=== PATIENT | male | born 1955 | race Caucasian/White ===

== ENCOUNTER → 2017-01-13 | Outpatient (CLI) | payer MEDICARE ==
[2017-01-13 09:41] LABS: Basophils % (A) 1 %; CH 31.1; CHCM 33.8; Eosinophils # (A) 0.3 k/uL (0-0.7); Eosinophils % (A) 6 %; HCT 40.8 % (39.0-53.0); HDW 2.48; HGB 13.8 gm/dL (13.0-17.5); Luc % (Auto) 4; Lymphocytes # (A) 1.6 k/uL (1.0-4.8); Lymphocytes % (A) 30 %; MCH 31.2 pg (25.0-35.0); MCHC 33.8 g/dL (31.0-37.0); MCV 92.3 fL (80.0-100.0); Monocytes # (A) 0.4 k/uL (0-1.0); Monocytes % (A) 7 %; Neutrophils # (A) 2.8 k/uL (1.3-7.7); Neutrophils % (A) 52 %; RBC 4.42 m/uL (4.30-5.90); RDW 13.5 % (11.5-15.5); WBC 5.4 k/uL (3.8-10.6); WBC (Perox) 5.45
[2017-01-13 10:19] LABS: ALT 29 U/L (21-72); AST 15 U/L (17-59); Alkaline Phosphatase 82 U/L (38-126); Anion Gap 8 mmol/L; Blood Urea Nitrogen 13 mg/dL (9-20); Calcium 9.1 mg/dL (8.4-10.2); Carbon Dioxide 29 mmol/L (22-30); Chloride 106 mmol/L (98-107); Cholesterol 163 mg/dL (<200); Glucose 86 mg/dL (74-99); HDL Cholesterol 44 mg/dL (40-60); Non-African American GFR(MDRD) >60 (>60 ml/min/1.73 sqM); Potassium 4.2 mmol/L (3.5-5.1); Sodium 143 mmol/L (137-145); Total Bilirubin 0.2 mg/dL (0.2-1.3); Total Protein 6.6 g/dL (6.3-8.2); Triglycerides 360 mg/dL (<150)
[2017-01-13 10:29] LABS: Hemoglobin A1C 5.7 % (4.2-6.1)
[2017-01-13 11:07] LABS: Vitamin B12 313 pg/mL (239-931)
[2017-01-16 11:34] LABS: Mercury Whole Blood < 2 mcg/L (< 11)
== END | disposition home or self-care (01) ==
LOC: LABWHC1 08:34
PROVIDERS: ATTEND Internal Medicine
DX: I65.29 Occlusion and stenosis of unspecified carotid artery (principal); G62.9 Polyneuropathy, unspecified; R73.02 Impaired glucose tolerance (oral); Z51.81 Encounter for therapeutic drug level monitoring
CPT/HCPCS: 36415; 80053; 80061; 80306; 82175; 82570; 82607; 82747; 83036; 83655; 83825; 85025

== ENCOUNTER → 2017-01-15 | Outpatient (CLI) | payer MEDICARE ==
--- NOTE | 2017-01-15 10:48 | US ---
EXAMINATION TYPE: US carotid duplex BILAT DATE OF EXAM: 01/15/2017 9:11 AM COMPARISON: In pacs CLINICAL HISTORY: 62-year-old male I65.29 Carotid Artery Stenosis,. TECHNIQUE: Carotid duplex ultrasound. Indirect Doppler criteria was utilized. FINDINGS: Zamora scale images show minimal atherosclerotic change at the bifurcations. EXAM MEASUREMENTS: RIGHT: Peak Systolic Velocity (PSV) cm/sec ----- Right CCA: 94.2 ----- Right ICA: 105.0 ----- Right ECA: 99.2 ICA/CCA ratio: 1.1 RIGHT: End Diastole cm/sec ----- Right CCA: 31.1 ----- Right ICA: 51.5 ----- Right ECA: 31.2 LEFT: Peak Systolic Velocity (PSV) cm/sec ----- Left CCA: 82.0 ----- Left ICA: 101.2 ----- Left ECA: 74.4 ICA/CCA ratio: 1.2 LEFT: End Diastole cm/sec ----- Left CCA: 31.2 ----- Left ICA: 47.0 ----- Left ECA: 17.2 VERTEBRALS (direction of flow): Right Vertebral: Antegrade Left Vertebral: Antegrade IMPRESSION: No hemodynamically significant stenosis appreciated in either internal carotid artery. Criteria for Assigning % of Stenosis / Diameter reduction (Estimation based on the indirect measurements of the internal carotid artery velocities (ICA PSV). 1. Normal (no stenosis)=ICA PSV < 125 cm/s: ratio < 2.0: ICA EDV<40 cm/s. 2. Less than 50% stenosis=ICA PSV < 125 cm/s: ratio < 2.0: ICA EDV<40 cm/s. 3. 50 to 69% stenosis=ICA PSV of 125 to 230 cm/s: ration 2.0 ? 4.0: ICA EDV 40-100 cm/s. 4. Greater than 70% stenosis to near occlusion= ICA PSV > 230 cm/s: ratio > 4.0: ICA EDV > 100 cm/s. 5. Near occlusion= ICA PSV velocities may be low or undetectable: variable ratio and ICA EDV. 6. Total occlusion=unable to detect flow.
== END | disposition home or self-care (01) ==
LOC: RADUSWWP 08:48
PROVIDERS: ATTEND Internal Medicine
DX: I65.29 Occlusion and stenosis of unspecified carotid artery (principal)
CPT/HCPCS: 93880

== ENCOUNTER → 2017-04-08 | Outpatient (CLI) | payer MEDICARE ==
--- NOTE | 2017-04-08 13:56 | XR ---
Bilateral hips HISTORY: Hip pain 2 views of both hips submitted Correlation of previous exam dated February, CT abdomen pelvis dated February 2017 Marginal spurring is present, joint spaces are relatively maintained. Alignment and bone mineralizati on normal. There is joint space loss on the left greater than right, large geode is present within th e acetabular roof on the left. Some erosion of the lateral aspect of the left acetabulum is again not ed. IMPRESSION: Osteoarthritis worse in the left hip within the right.
== END ==
LOC: RADXRMAIN 10:36
PROVIDERS: ATTEND Internal Medicine
DX: M16.0 Bilateral primary osteoarthritis of hip (principal)
CPT/HCPCS: 73521

== ENCOUNTER → 2017-10-07 | Outpatient (CLI) | payer MEDICARE ==
[~2017-10-07] MED LIST: HYDROcodone/APAP 5-325MG 1 EACH TAB PO STA
[2017-10-07 08:48] LABS: Cholesterol 171 mg/dL (<200); HDL Cholesterol 49 mg/dL (40-60); Non-African American GFR(MDRD) >60 (>60 ml/min/1.73 sqM)
[2017-10-07 08:49] VITALS: RESP 14; TEMP 98.3
[2017-10-07 11:17] VITALS: BP 124/80; PULSE 76
== END | disposition home or self-care (01) ==
LOC: RADMRIMAIN 07:58
PROVIDERS: ATTEND Psychiatry & Neurology Neurology
DX: I65.29 Occlusion and stenosis of unspecified carotid artery (principal); Z13.9 Encounter for screening, unspecified; Z12.5 Encounter for screening for malignant neoplasm of prostate
CPT/HCPCS: 80061; 82565

== ENCOUNTER → 2017-10-07 | Outpatient (CLI) | payer MEDICARE ==
[2017-10-07 08:56] LABS: Basophils # (A) 0.1 k/uL (0-0.2); Basophils % (A) 1 %; CH 29.7; CHCM 32.8; Eosinophils # (A) 0.5 k/uL (0-0.7); Eosinophils % (A) 7 %; HDW 2.33; HGB 14.2 gm/dL (13.0-17.5); Luc # (Auto) 0.15; Luc % (Auto) 2; Lymphocytes # (A) 1.5 k/uL (1.0-4.8); Lymphocytes % (A) 21 %; MCH 30.1 pg (25.0-35.0); MCHC 33.1 g/dL (31.0-37.0); Mean Platelet Volume 6.8; Monocytes # (A) 0.7 k/uL (0-1.0); Monocytes % (A) 10 %; Neutrophils # (A) 4.1 k/uL (1.3-7.7); Neutrophils % (A) 59 %; RBC 4.73 m/uL (4.30-5.90); RDW 15.8 % (11.5-15.5); WBC (Perox) 7.05
[2017-10-07 11:21] LABS: ALT 29 U/L (21-72); AST 17 U/L (17-59); Alkaline Phosphatase 84 U/L (38-126); Anion Gap 10 mmol/L; Blood Urea Nitrogen 18 mg/dL (9-20); Calcium 9.7 mg/dL (8.4-10.2); Carbon Dioxide 22 mmol/L (22-30); Chloride 110 mmol/L (98-107); Glucose 91 mg/dL (74-99); Non-African American GFR(MDRD) >60 (>60 ml/min/1.73 sqM); Potassium 4.3 mmol/L (3.5-5.1); Sodium 142 mmol/L (137-145); Total Bilirubin 0.4 mg/dL (0.2-1.3); Total Protein 7.5 g/dL (6.3-8.2)
[2017-10-07 11:50] LABS: Prostate Specific Antigen 0.32 ng/mL (0.00-4.00)
== END ==
LOC: LAB 08:07
PROVIDERS: ATTEND Internal Medicine
DX: I65.29 Occlusion and stenosis of unspecified carotid artery (principal); Z13.9 Encounter for screening, unspecified; Z12.5 Encounter for screening for malignant neoplasm of prostate
CPT/HCPCS: 80053; 84153; 85025; 86803

== ENCOUNTER → 2017-11-18 | Outpatient (CLI) | payer MEDICARE ==
--- NOTE | 2017-11-18 08:30 | MR ---
MRI CERVICAL SPINE: CLINICAL HISTORY: Severe new onset pain and cervical herniated disc per order. Neck pain down right a rm into fingers per patient. TECHNIQUE: Multiplanar, multisequence imaging of the cervical spine is performed without IV contrast. COMPARISON: MRI cervical spine August 17, 2016. FINDINGS: Exam is once again noted suboptimal due to significant patient motion similar to prior MRI, patient states too much pain to stay still per mri special procedures technologist. Sagittal images of the cervical spi ne show the craniocervical junction to remain within normal limits. The cervical and upper thoracic spinal cord is normal in course and caliber. Areas of abnormal signal cannot be excluded for referen ce superior C3 level on sagittal image 7. There is slight grade 1 retrolisthesis of C3 on C4 and C5 o n C6. The vertebral body and heights are normal. There is mild disc space narrowing C5-C6 level rede monstrated. No large posterior disc herniations are seen on sagittal images The bone marrow signal i ntensity is within normal limits. No significant spurring is seen. Axial images show the C2-C3 level to remain within normal limits. Axial images at C3-C4 level show uncovertebral facet degenerative changes causing mild bilateral neur al foraminal narrowing, spinal canal is preserved. No significant change from prior study is seen. Axial images at C4-C5 level show broad-based left paracentral disc protrusion effacing anterolateral thecal sac with mild bilateral neural foraminal narrowing, no significant change from prior study is seen. Axial images at C5-C6 level show spondylolisthesis and broad-based left paracentral disc protrusion, there is effacement of the anterior thecal sac and mild to moderate left greater than right neural fo raminal narrowing at this level identified. Axial images at C6-C7 level shows central disc protrusion effacing anterior thecal sac, bilateral vimal ral foramina are difficult to assess due to motion artifact degradation. Axial images at C7-T1 level are felt within normal limits. IMPRESSION: Suboptimal study with motion artifact degradation redemonstrated. There is multilevel spo ndylolisthesis and degenerative change again seen. No obvious change from prior study is noted.
== END | disposition home or self-care (01) ==
LOC: RADMRIMAIN 07:33
PROVIDERS: ATTEND Psychiatry & Neurology Neurology
DX: M43.12 Spondylolisthesis, cervical region (principal); M47.812 Spondylosis without myelopathy or radiculopathy, cervical region
CPT/HCPCS: 72141

== ENCOUNTER → 2017-12-01 | Outpatient (CLI) | payer MEDICARE ==
[2017-12-01 16:03] LABS: Basophils # (A) 0.1 k/uL (0-0.2); Basophils % (A) 1 %; Eosinophils # (A) 0.5 k/uL (0-0.7); Eosinophils % (A) 7 %; HCT 44.2 % (39.0-53.0); HGB 14.2 gm/dL (13.0-17.5); Lymphocytes # (A) 1.6 k/uL (1.0-4.8); Lymphocytes % (A) 23 %; MCH 29.1 pg (25.0-35.0); MCHC 32.1 g/dL (31.0-37.0); MCV 90.4 fL (80.0-100.0); Mean Platelet Volume 6.8; Monocytes # (A) 0.5 k/uL (0-1.0); Monocytes % (A) 7 %; Neutrophils # (A) 4.1 k/uL (1.3-7.7); Neutrophils % (A) 59 %; Platelet Count 345 k/uL (150-450); RBC 4.89 m/uL (4.30-5.90); RDW 15.3 % (11.5-15.5); WBC 6.9 k/uL (3.8-10.6)
[2017-12-01 16:08] LABS: AST 17 U/L (17-59); Albumin 4.2 g/dL (3.5-5.0); Alkaline Phosphatase 89 U/L (38-126); Anion Gap 10 mmol/L; Blood Urea Nitrogen 16 mg/dL (9-20); Calcium 10.3 mg/dL (8.4-10.2); Carbon Dioxide 25 mmol/L (22-30); Chloride 107 mmol/L (98-107); Glucose 93 mg/dL (74-99); Potassium 4.7 mmol/L (3.5-5.1); Sodium 142 mmol/L (137-145); Total Bilirubin 0.2 mg/dL (0.2-1.3); Total Protein 7.4 g/dL (6.3-8.2)
[2017-12-01 16:10] LABS: Partial Thromboplastin Time 22.9 sec (22.0-30.0); Prothrombin Time 9.6 sec (9.0-12.0)
[2017-12-01 16:14] LABS: ALT 33 U/L (21-72)
[2017-12-01 16:18] LABS: Appearance,Urine Clear (Clear); Bilirubin,Urine Negative (Negative); Blood,Urine Negative (Negative); Color,Urine Light Yellow; Glucose,Urine (UA) Negative (Negative); Ketones,Urine Negative (Negative); Leukocyte Esterase,Urine Negative (Negative); Nitrite,Urine Negative (Negative); Protein,Urine Negative (Negative); Specific Gravity,Urine 1.013 (1.001-1.035); Urobilinogen,Urine <2.0 mg/dL (<2.0)
== END | disposition home or self-care (01) ==
LOC: LABWHC1 15:20
PROVIDERS: ATTEND Neurological Surgery
DX: Z01.812 Encounter for preprocedural laboratory examination (principal); M47.812 Spondylosis without myelopathy or radiculopathy, cervical region
CPT/HCPCS: 36415; 80053; 81003; 85025; 85610; 85730

== ENCOUNTER → 2019-12-30 | Outpatient (CLI) | payer MEDICARE ==
[2019-12-30 10:21] LABS: Basophils # (A) 0.1 k/uL (0-0.2); Basophils % (A) 1 %; Eosinophils # (A) 0.1 k/uL (0-0.7); Eosinophils % (A) 2 %; HCT 44.3 % (39.0-53.0); HGB 14.4 gm/dL (13.0-17.5); Lymphocytes # (A) 1.8 k/uL (1.0-4.8); Lymphocytes % (A) 32 %; MCH 29.6 pg (25.0-35.0); MCHC 32.6 g/dL (31.0-37.0); Mean Platelet Volume 6.7; Monocytes # (A) 0.6 k/uL (0-1.0); Monocytes % (A) 10 %; Neutrophils # (A) 2.9 k/uL (1.3-7.7); Neutrophils % (A) 52 %; Platelet Count 442 k/uL (150-450); RBC 4.87 m/uL (4.30-5.90); RDW 13.2 % (11.5-15.5); WBC 5.6 k/uL (3.8-10.6)
[2019-12-30 15:48] LABS: African American GFR (CKD) 104.2 (60.0-200.0); Albumin 4.2 g/dL (3.80-4.90); Albumin/Globulin Ratio 1.75 (1.60-3.17); Anion Gap 1.1 mmol/L (4.00-12.00); BUN/Creat Ratio 14.44 Ratio (12.00-20.00); Calcium 9.1 mg/dL (8.7-10.3); Carbon Dioxide 25.9 mmol/L (21.6-31.8); Globulin 2.4 g/dL (1.6-3.3); LDL Cholesterol,Calculated 109.2 mg/dL (0.0-131.0); Non-African American GFR(CKD) 89.9 (60.0-200.0); Potassium 4.3 mmol/L (3.5-5.5); Total Bilirubin 0.4 mg/dL (0.2-1.2); Total Protein 6.6 g/dL (6.2-8.2); VLDL Calculation 22.8 mg/dL (5.00-40.00)
== END | disposition home or self-care (01) ==
LOC: LABWHC1 09:01
PROVIDERS: ATTEND Internal Medicine
DX: Z13.9 Encounter for screening, unspecified (principal); I63.9 Cerebral infarction, unspecified; E55.9 Vitamin D deficiency, unspecified; F90.9 Attention-deficit hyperactivity disorder, unspecified type; Z12.5 Encounter for screening for malignant neoplasm of prostate
CPT/HCPCS: 86803; 80061; 80053; 84443; 85025; 82306; 36415; G0103

== ENCOUNTER → 2019-12-31 | Outpatient (CLI) | payer MEDICARE ==
--- NOTE | 2020-01-01 16:55 | CTL ---
EXAMINATION TYPE: CT Low Dose Lung DATE OF EXAM ORDERED: 12/31/2019 COMPARISON: HISTORY: . Low Dose CT Lung Screening CT DLP: [address] CTDI: 2.1 mGy IV CONTRAST USED: None. SCREENING VISIT: First visit COMPARISON: None. TECHNIQUE: Low dose computed tomography scan was performed through the chest at 1 millimeter thick se ctions and reconstructed images in the coronal plane at [address] DIAGNOSTIC QUALITY: Satisfactory FINDINGS: LUNG NODULES: Right lung: No nodules identified. Left lun mm nodule left upper lobe at its periphery image 139. 4 mm subpleural nodule left upper lobe image 45. LUNGS: COPD: Severity: Mild Fibrosis: Severity:None Lymph nodes: None Other findings: None RIGHT PLEURAL SPACE: Effusion: None Calcification: None Thickening: None Pneumothorax: None LEFT PLEURAL SPACE: Effusion: None Calcification: None Thickening: None Pneumothorax: None HEART: Heart Size: Mildly enlarged Coronary calcification: Mild Pericardial effusion: None OTHER FINDINGS: Upper abdomen: No significant abnormality Bony thorax: Degenerative changes Supraclavicular region: No significant abnormalityOther: No significant abnormalityI IMPRESSION: Benign FOLLOW UP CT CHEST RECOMMENDATION: Follow-up screening in one year CT LUNG RAD: LUNG RAD CATEGORY category 1 benign
== END | disposition home or self-care (01) ==
LOC: RADCTMAIN 16:09
PROVIDERS: ATTEND Internal Medicine
DX: Z12.2 Encounter for screening for malignant neoplasm of respiratory organs (principal); Z87.891 Personal history of nicotine dependence

== ENCOUNTER → 2021-02-16 | Outpatient (CLI) | payer MEDICARE ==
[2021-02-16 07:50] LABS: African American GFR (CKD) >90 (>60 ml/min/1.73 sqM); Blood Urea Nitrogen 17 mg/dL (9-20); Non-African American GFR(CKD) >90 (>60 ml/min/1.73 sqM)
--- NOTE | 2021-02-16 13:44 | CT ---
EXAMINATION TYPE: CT chest w con DATE OF EXAM: 02/16/2021 COMPARISON: 12/31/2019 low-dose CT chest HISTORY: Hemoptysis happened a few times a few weeks ago CT DLP: 439.3 mGycm, Automated exposure control for dose reduction was used. CONTRAST: Performed injected with 100 mL of Isovue 300. TECHNIQUE: Axial images were obtained at 5 mm thick sections. Reconstructed images are reviewed on [employer] computer in the coronal plane. FINDINGS: Portion of the thyroid visualized is normal. No suspicious lung nodules or focal infiltrates are present. Tracheobronchial tree appears normal as visualized. A 1.7 cm right hilar lymph node present. A 1.8 cm pretracheal lymph node near the level of janeth is present. A 1.0 cm lymph s in the pretracheal space superiorly. Additional lymphadenopathy is present . Some shotty lymphadenopathy is in the aortopulmonic window level. As the patient had a recent Covid -19 vaccination? The ascending aorta diameter at the level of the main pulmonary artery is 3.5 cm. The main pulmonary artery diameter at the bifurcation is 2.4 cm. Some coronary artery calcification appears to be prese nt. There is a small hiatal hernia present. Limited CT sections are obtained through the upper abdomen. Abdomen is essentially unremarkable. IMPRESSIONS: 1. Abnormal mediastinal adenopathy. Findings are an interval development from 2019. Consider additio nal workup. Metastatic disease, lymphoma, benign etiologies may account for this finding.
== END | disposition home or self-care (01) ==
LOC: RADCTMAIN 07:03
PROVIDERS: ATTEND Internal Medicine Critical Care Medicine
DX: R59.0 Localized enlarged lymph nodes (principal); R04.2 Hemoptysis
CPT/HCPCS: 82565; 84520; 71260; 36415; Q9967

== ENCOUNTER → 2021-03-16 | Outpatient (CLI) | payer MEDICARE ==
--- NOTE | 2021-03-19 07:10 | PE ---
EXAMINATION TYPE: PET CT fusion skull to thigh DATE OF EXAM: 03/16/2021 COMPARISON: Chest CT February 16, 2021 and older CTs HISTORY: Enlarged lymph nodes, abnormal CT TECHNIQUE: Following the intravenous administration of 10.91 mCi of F-18 FDG, whole body images are performed from the skull base to the midthigh. Images are reviewed on the computer in the coronal, a xial, and sagittal planes. Reconstructed rotating images are created on independent workstation and reviewed on the computer. A localization and attenuation correction CT is performed in conjunction with the PET scan. Blood glucose level equals 110 SCAN: Initial Scan FINDINGS: Mean SUV mediastinum: 1.3 Mean SUV liver: 2.07 SKULL BASE AND NECK: No areas of abnormal hypermetabolic uptake. CHEST, MEDIASTINUM, AND HILAR REGION: There is 8mm hypermetabolic right intramammary lymph node axial image 88, max SUV is 6.17. Abnormal additional thoracic lymph nodes, largest right hilum measures 2.4 x 2.3 cm axial image 108, max SUV is 6.61. Additional abnormal hypermetabolic multiple pericarinal and paratracheal lymph nodes extending into the anterior superior mediastinum, for reference there is a 1.5 x 1.5 cm lymph node a xial image 100, max SUV is 5.69. No abnormal left hilar or definitive subcarinal enlarged hypermetabolic adenopathy. No suspicious axi llary adenopathy noted ABDOMEN AND PELVIS: There is hypermetabolic 1.4 cm right adrenal nodule axial image 158 new from 2017 study. Max SUV is 6.00. Normal excretion. Focus of increased hypermetabolic uptake left pelvis axial image 216 appears to cor respond to level of distal ureter, no obvious new enlarged lymph node identified on CT correlation. S ome nonspecific bowel uptake. No suspicious groin adenopathy. No additional areas of abnormal hyperme tabolic uptake. OSSEOUS STRUCTURES: No suspicious hypermetabolic uptake. OTHER CT: Mild calcified plaque bilateral carotid bulb level. Mild emphysematous changes in the lungs . Extensive surgical change to the lumbar spine. Multilevel laminectomy defects and spinous process res ection. Prominent disc space narrowing L2-L3 and L3-L4 levels. Bladder poorly distended with moderate concentric wall thickening. Left-sided pelvic phlebolith. IMPRESSION: Abnormal areas of hypermetabolic uptake worrisome for neoplasm confirmed. Findings suspic ious for primary right hilar lung neoplasm with associated adenopathy and right adrenal metastatic le christian. Bronchoscopy with sampling advised
== END | disposition home or self-care (01) ==
LOC: RADPETMAIN 11:03
PROVIDERS: ATTEND Internal Medicine Critical Care Medicine
DX: R59.9 Enlarged lymph nodes, unspecified (principal)
CPT/HCPCS: 78815; A9552

== ENCOUNTER 2021-04-03 08:01 | Day surgery (SDC) | payer MEDICARE ==
[2021-04-03] MEDS ORDERED: ALPRAZolam 0.25 MG TAB PO PRN (08:12)
[2021-04-03 08:43] VITALS: TEMP 98.3
[2021-04-03 08:54] LABS: Mean Platelet Volume 6.4; Platelet Count 337 k/uL (150-450)
[2021-04-03 09:02] LABS: INR 0.9 (<1.2); Prothrombin Time 10.1 sec (9.0-12.0)
[2021-04-03 09:25] VITALS: BP 110/68; PULSE 72; RESP 16
--- NOTE | 2021-04-03 12:34 | CT ---
EXAMINATION TYPE: CT discontinued procedure DATE OF EXAM: 04/03/2021 COMPARISON: PET/CT 03/16/2021 HISTORY: Metastatic disease and abnormal PET/CT CT DLP: 385 mGycm Automated exposure control for dose reduction was used. Helical imaging obtained through the region o f the adrenal glands for biopsy preparation FINDINGS: Patient was unable to cooperate with exam due to pain. Attempts to position the patient for an approa ch to the adrenal mass were unsuccessful. IMPRESSION: ADRENAL BIOPSY WAS DISCONTINUED
== END 2021-04-03 09:51 | disposition home or self-care (01) ==
LOC: RADPROMAIN 08:01
PROVIDERS: ATTEND Internal Medicine Critical Care Medicine
DX: R91.8 Other nonspecific abnormal finding of lung field (principal); Z53.8 Procedure and treatment not carried out for other reasons
CPT/HCPCS: 36415; 76380; 85049; 85610

== ENCOUNTER 2021-04-05 10:52 | Day surgery (SDC) | payer MEDICARE ==
[2021-04-02 12:27] VITALS: BMI 27.8
[~2021-04-05 10:52] MED LIST changes: +ALBUTEROL NEB (CONC) 2.5 MG/0.5 ML INHALATION ONE; +ATROPINE SULFATE 0.4 MG/ML 1 ML VIAL IM ONE; +DEXAMETHASONE SOD PHOSPHATE 4 MG/ML 1 ML VIAL IV ONE; -HYDROcodone/APAP 5-325MG 1 EACH TAB PO STA; +HYDROmorphone 0.5 MG/0.5 ML SYRINGE IVP PRN; +LACTATED RINGERS 1,000 ML IV SCH; +LIDOCAINE 1% (10MG/ML) FOR IV START INTRADERMA PRN; +LIDOCAINE 2% (PF) 20 MG/ML 5 ML VIAL INHALATION ONE; +LIDOCAINE VISCOUS 300 MG/15 ML CUP MUCOUS MEM ONE; +ONDANSETRON 4 MG/2 ML VIAL IVP ONE; +SODIUM CHLORIDE 0.9% 1,000 ML IV SCH
[2021-04-05] MEDS ORDERED: LIDOCAINE 1% (10MG/ML) FOR IV START SQ ONE (11:33)
[2021-04-05] MEDS ORDERED: fentaNYL (PF) 50 MCG/ML 2 ML AMP IVP ONE ×2 (12:39→13:12)
--- NOTE | 2021-04-05 12:39 | CT ---
EXAMINATION TYPE: CT Chest wo con [place] Protocol DATE OF EXAM: 04/05/2021 COMPARISON: PET CT 03/16/2021 HISTORY: lung nodule preprocedural Veran CT DLP: [address] of the chest was performed with lung and mediastinal window settings submitted. The la ck of contrast limits evaluation of the vascular, mediastinal and parenchymal structures including th e upper abdomen. LUNGS: Right upper lobe anterior nodular density measuring 1 cm. No pleural effusion. No CT evidence of interstitial lung disease. MEDIASTINUM/JOSÉ: There is right hilar adenopathy or mass measuring 2.6 x 2.5 cm. Right paratracheal adenopathy measures 1.4 cm. Subcarinal adenopathy measures 1.1 cm. UPPER ABDOMEN: Right adrenal nodule measuring 1.3 cm. Sliding-type hiatal hernia. OTHER: No significant other abnormality. IMPRESSION: 1. There is right hilar adenopathy or mass measuring 2.6 x 2.5 cm. Right paratracheal adenopathy don sures 1.4 cm. Subcarinal adenopathy measures 1.1 cm. 2. Right upper lobe anterior nodular density
[2021-04-05] MEDS ORDERED: LIDOCAINE 1% INJ 10MG/ML (20 ML MDV) ONE (13:18)
[2021-04-05] MEDS ORDERED: SUCCINYLCHOLINE CHLORIDE 100 MG/5 ML SYR IV ONE (13:18)
[2021-04-05] MEDS ORDERED: MIDAZOLAM 2 MG/2 ML VIAL ONE (13:18)
[2021-04-05] MEDS ORDERED: fentaNYL (PF) 50 MCG/ML 2 ML AMP ONE (13:18)
[2021-04-05] MEDS ORDERED: PROPOFOL 10 MG/ML 20 ML VIAL IV ONE (13:18)
[2021-04-05 14:01] VITALS: RESP 16; TEMP 97
[2021-04-05 14:55] VITALS: BP 123/73; PULSE 71
--- NOTE | 2021-04-05 15:28 | XR ---
EXAMINATION TYPE: XR chest 1V DATE OF EXAM: 04/05/2021 COMPARISON: Chest CT 04/05/2021 HISTORY: Post bronchoscopy TECHNIQUE: Single frontal view of the chest is obtained. FINDINGS: Heart size is within normal limits. Mild prominence of the right hilum. No focal consolida tion, pneumothorax or pleural effusion. Cervical spine hardware. IMPRESSION: 1. No acute pulmonary disease. Mild prominence of the right hilum.
--- NOTE | 2021-04-06 04:26 | PCN ---
PROCEDURE NOTE PROCEDURE PERFORMED: Bronchoscopy airway examination, therapeutic lavage and transbronchial needle aspirations/one needle aspiration in the area of the janeth the right upper lobe from the bronchus intermedius. OPERATORS: Dr. Calvert and Dr. Whitney. PREOPERATIVE DIAGNOSIS: Rule out lung cancer. POSTOP DIAGNOSIS: Rule out lung cancer. ANESTHESIA: The patient was given general anesthesia by Dr. Uribe and the FORM WORKER. The patient is being fully monitored. DESCRIPTION OF PROCEDURE: Once the patient was under the effects of anesthesia, the bronchoscope was inserted through the bronchoscope adapter connected to the endotracheal tube. It passed easily through the endotracheal tube. We did a thorough inspection of the left lung. The left upper lobe and its 2 segments, the lingula and its 2 segments and the left lower lobe and its 4 segments were all normal. Likewise, on the right side, the right middle lobe and the 2 segments of the right middle lobe and the 5 segments of the right lower lobe were all normal. Also, the right upper lobe itself was normal. What was abnormal was the janeth the right upper lobe from the bronchus intermedius. This is where we sampled. We did 5-6 passes with the [place] needle. We got good samples and core tissues from this area. The patient tolerated the procedure well. There was minimal bleeding. Once we assured that there was good hemostasis, the bronchoscope was withdrawn. The patient will be recovered. There was no endobronchial mass or tumor. There was definite thickening and widening of the janeth the right upper lobe from the bronchus intermedius and again this is what we sampled. We did take a picture for our files. The patient tolerated the procedure well. No additional recommendations are made. MMODL / IJN: [id number] /
== END 2021-04-05 15:10 | disposition home or self-care (01) ==
LOC: ORWHC2ENDO 10:52
PROVIDERS: ATTEND Internal Medicine Critical Care Medicine
DX: R91.8 Other nonspecific abnormal finding of lung field (principal); R59.0 Localized enlarged lymph nodes; J44.9 Chronic obstructive pulmonary disease, unspecified; R04.2 Hemoptysis; K21.9 Gastro-esophageal reflux disease without esophagitis; K44.1 Diaphragmatic hernia with gangrene; Z87.891 Personal history of nicotine dependence; Z79.899 Other long term (current) drug therapy; Z88.5 Allergy status to narcotic agent; Z88.8 Allergy status to other drugs, medicaments and biological substances; Z91.040 Latex allergy status
CPT/HCPCS: 88305; 71045; 71250; 31629; J2250; J2001; J3010; J0330; J2704

== ENCOUNTER 2021-04-25 12:20 | Day surgery (SDC) | payer MEDICARE ==
[2021-04-23 10:30] VITALS: BMI 26.8
[~2021-04-25 12:20] MED LIST changes: -ATROPINE SULFATE 0.4 MG/ML 1 ML VIAL IM ONE; -DEXAMETHASONE SOD PHOSPHATE 4 MG/ML 1 ML VIAL IV ONE; -HYDROmorphone 0.5 MG/0.5 ML SYRINGE IVP PRN; -LACTATED RINGERS 1,000 ML IV SCH; -LIDOCAINE 1% (10MG/ML) FOR IV START INTRADERMA PRN; -LIDOCAINE VISCOUS 300 MG/15 ML CUP MUCOUS MEM ONE; -ONDANSETRON 4 MG/2 ML VIAL IVP ONE
[2021-04-25] MEDS ORDERED: LACTATED RINGERS 1,000 ML IV ONE (12:41)
[2021-04-25] MEDS ORDERED: LIDOCAINE 1% (10MG/ML) FOR IV START INTRADERMA ONE ×2 (13:00→13:07)
[2021-04-25] MEDS: ATROPINE SULFATE 0.4 MG/ML 1 ML VIAL IM ONE ×2 (13:05→13:07)
[2021-04-25] MEDS: LIDOCAINE VISCOUS 300 MG/15 ML CUP MUCOUS MEM ONE ×2 (13:05→13:07)
[2021-04-25] MEDS ORDERED: LIDOCAINE 1% INJ 10MG/ML (20 ML MDV) ONE (14:17)
[2021-04-25] MEDS ORDERED: fentaNYL (PF) 50 MCG/ML 2 ML AMP ONE (14:17)
[2021-04-25] MEDS ORDERED: SUCCINYLCHOLINE CHLORIDE 100 MG/5 ML SYR IV ONE (14:17)
[2021-04-25] MEDS ORDERED: PROPOFOL 10 MG/ML 20 ML VIAL IV ONE (14:17)
[2021-04-25] MEDS ORDERED: PHENYLEPHRINE-0.9% NACL SYG 1,000 MCG/10 ML SYRINGE ONE (14:17)
[2021-04-25] MEDS ORDERED: GLYCOPYRROLATE 0.2 MG/ML 2 ML VIAL ONE (14:17)
[2021-04-25 15:15] VITALS: TEMP 96.9
--- NOTE | 2021-04-25 16:00 | XR ---
EXAMINATION TYPE: XR chest 1V portable DATE OF EXAM: 04/25/2021 COMPARISON: Chest x-ray April 05, 2021 HISTORY: Postbronchoscopy. TECHNIQUE: Single AP portable frontal upright view of the chest is obtained. FINDINGS: There is no focal air space opacity, pleural effusion, or pneumothorax seen after bronchos copy. The cardiac silhouette size remains within normal limits. Surgical change to the cervical spin e is redemonstrated. IMPRESSION: No pneumothorax after bronchoscopy.
[2021-04-25 16:01] VITALS: RESP 16
[2021-04-25 16:16] VITALS: BP 121/73; PULSE 75
--- NOTE | 2021-04-25 23:02 | OP ---
OPERATIVE REPORT PROCEDURE PERFORMED: Bronchoscopy, airway examination, transbronchial needle aspiration, (Goodman), biopsies right upper lobe and also core biopsies right upper lobe. PREOP DIAGNOSIS: Thoracic adenopathy, rule out cancer. POSTOP DIAGNOSIS: Thoracic adenopathy, rule out cancer. OPERATORS: Dr. Calvert, Dr. Whitney and Dr. Osuna. ANESTHESIA: The patient's case was done under general anesthesia. DESCRIPTION OF PROCEDURE: After the patient was adequately sedated and anesthetized, the bronchoscope was inserted through the bronchoscope adapter connected to the endotracheal tube. The area of concern was on the janeth the right upper lobe from the bronchus intermedius. We had good localization visually. We did multiple transbronchial needle aspirations. We also did some core biopsies to the same area. There was no immediate complication. The patient tolerated the procedure well. There was minimal bleeding. We assured hemostasis prior to removing the bronchoscope. The patient will be recovered. There was no immediate complication. MMODL / IJN: [id number] / [facility] SYSTEMJacque
== END 2021-04-25 16:23 | disposition home or self-care (01) ==
LOC: ORWHC2ENDO 12:20
PROVIDERS: ATTEND Internal Medicine Critical Care Medicine
DX: C34.11 Malignant neoplasm of upper lobe, right bronchus or lung (principal); J44.9 Chronic obstructive pulmonary disease, unspecified; Z98.890 Other specified postprocedural states; K21.9 Gastro-esophageal reflux disease without esophagitis; K44.9 Diaphragmatic hernia without obstruction or gangrene; Z87.891 Personal history of nicotine dependence; Z79.82 Long term (current) use of aspirin; Z79.891 Long term (current) use of opiate analgesic; Z79.899 Other long term (current) drug therapy; Z88.8 Allergy status to other drugs, medicaments and biological substances; Z91.040 Latex allergy status
CPT/HCPCS: 88305; 88173; 88342; 88341; 71045; 31629; 31625; J0461; J2001; J3010; J2370; J0330; J2704; 31633